=== PATIENT | female | born 1975 | race Caucasian/White ===

== ENCOUNTER 2017-03-03 10:07 | Emergency (ER) | payer OTHER, BC ==
--- NOTE | 2017-03-10 18:56 | ER ---
ADMIT: 03/03/2017 RM/LOC: ER [facility] MR#: [id number] [address] [id number] SLALY BARBOSA [address] [place] [address] Emergency Room Report SEX: F AGE: 42 : 1975 DATE: 03/03/2017 ADDENDUM: A 42-year-old white female coming in with left shoulder pain. She was lifting and strained it. This is on the left side and this happened at work. X-ray is negative. We are going to let her ice this. Use Motrin and Tylenol for pain. Limit her job duties and then follow up with her doctor. CONDITION ON DISCHARGE: Fair. Sabino Castillo MD/ [facility]riberto JOB #: [id number] CC: Sabino Castillo MD, Attending Physician Krista Irving MD, Family Physician
== END 2017-03-03 11:20 | disposition home or self-care (01) ==
LOC: ER 10:07
DX: S46.012A Strain of muscle(s) and tendon(s) of the rotator cuff of left shoulder, initial encounter (principal); S43.422A Sprain of left rotator cuff capsule, initial encounter; Z87.891 Personal history of nicotine dependence; Z98.890 Other specified postprocedural states; Z90.711 Acquired absence of uterus with remaining cervical stump; Z79.899 Other long term (current) drug therapy; Z88.0 Allergy status to penicillin; X50.0XXA Overexertion from strenuous movement or load, initial encounter; Y92.69 Other specified industrial and construction area as the place of occurrence of the external cause